=== PATIENT | male | born 1930 | race African-American/Black ===

== ENCOUNTER 2016-06-28 00:34 | Inpatient (IN) | payer MEDICARE, BC ==
[~2016-06-28] VITALS: Ht 175.3 cm; Wt 64.0 kg
[2016-06-28 01:53] VITALS: BP 136/63
[2016-06-28] MEDS ORDERED: DIOVAN160 MG ORAL (02:31)
[2016-06-28] MEDS ORDERED: HYDROCHLOROTHIA25 MG ORAL (02:31)
[2016-06-28] MEDS ORDERED: ATENOLOL50 MG ORAL (02:40)
[2016-06-28] MEDS ORDERED: LIPITOR20 MG ORAL (02:40)
[2016-06-28] MEDS ORDERED: PYRIDOXINE HCL50 MG ORAL (02:40)
[2016-06-28] MEDS ORDERED: ASPIR 8181 MG ORAL (02:40)
[2016-06-28] MEDS ORDERED: NORVASC10 MG ORAL (02:40)
[2016-06-28] MEDS ORDERED: CALCIUM500 M2 PO (02:40)
[2016-06-28] MEDS ORDERED: PSYLLIUM SEED480 GM PO (02:40)
[2016-06-28] MEDS ORDERED: VITAMIN B-12250 MCG PO (02:40)
[2016-06-28] MEDS ORDERED: VITAMIN D-40400 UNIT ORAL (02:40)
[2016-06-28] MEDS ORDERED: CENTRUM SILVER1 EAC5 PO (02:40)
[2016-06-28] MEDS ORDERED: METFORMIN HCL500 M1 ORAL (02:40)
[2016-06-28] MEDS ORDERED: SELENOMAX200 MCG PO (02:41)
[2016-06-28 04:00] VITALS: BP 136/62
[2016-06-28] MEDS ORDERED: metFORMIN 500mg tab ORAL SCH (06:30)
[2016-06-28 08:00] VITALS: BP 129/55
[2016-06-28] MEDS: Metoprolol 25mg tab ORAL SCH ×2 (09:01→21:06)
[2016-06-28] MEDS: Metamucil Pkt ORAL SCH (09:02)
[2016-06-28] MEDS: Irbesartan 150mg tablet ORAL SCH (09:02)
[2016-06-28] MEDS: NovoLOG Insulin Flexpen SUBQ SCH ×5 (09:05→21:07)
[2016-06-28 12:00] VITALS: BP 105/60
--- NOTE | 2016-06-28 12:13 | Consultation ---
History of Present Illness General Date patient seen: Jun 28, 2016 Time patient seen: 09:30 Chief Complaint: syncope Referring physician: dr Avila Reason for Consultation: inpatietn management Present Illness HPI 85 y/old male with hx of HTN, DM, recently diagnosed lung Ca stage 3, was transferred from [place] for further management patient sustained witnessed syncopal episode while in [facility] and was initially BIBA to [place] he admitted not to have breakfast or liquids at that day he felt dizzy and then blackout, according to witness, within less than a minute regained consciousness Workup in [place] was negative patient was admitted for further manageetmn patient denies chest pain, SOB, palpitation, denies dizziness, no further blackout denies headaches, any focal deficits no change in vision , no double vision, no new weakness patient is scheduled to start chemo on Wednesday in [facility] Allergies: Coded Allergies: No Known Allergies (Unverified , 06/28/16) Medication History Scheduled Amlodipine Besylate (Norvasc), 10 MG ORAL DAILY, (Reported) Aspirin* (Aspir 81*), 81 MG ORAL DAILY, (Reported) Atenolol* (Tenormin*), 50 MG ORAL DAILY, (Reported) Atorvastatin Calcium* (Lipitor*), 20 MG ORAL BEDTIME, (Reported) Calcium Carbonate (Calcium), 500 MG PO THREE TIMES A WEEK, (Reported) Cholecalciferol (Vitamin D3) (Vitamin D-400*), 400 UNITS ORAL DAILY, (Reported) Cyanocobalamin (Vitamin B-12) (Vitamin B-12), 250 MCG PO DAILY, (Reported) Folic Acid/Multivits-Min/Lut (Centrum Silver Chewable Tablet), 1 EACH PO DAILY, (Reported) Hydrochlorothiazide* (Hydrochlorothiazide*), 25 MG ORAL DAILY, (Reported) Metformin Hcl* (Metformin Hcl*), 500 MG ORAL THREE TIMES A DAY, (Reported) Psyllium Husk (Psyllium Seed), Unknown Dose PO DAILY, (Reported) Pyridoxine Hcl* (Vitamin B-6*), 50 MG ORAL DAILY, (Reported) Selenium (Selenomax), 200 MCG PO THREE TIMES A WEEK, (Reported) Valsartan (Diovan), 320 MG ORAL DAILY, (Reported) Patient History History Provided By: Patient, Family Member Healthcare decision maker Resuscitation status Full Code Advanced Directive on File Review of Systems Constitutional: Reports: weakness Eye: Reports: no symptoms ENT: Reports: no symptoms Respiratory: Reports: see HPI Cardiovascular: Reports: see HPI Gastrointestinal: Reports: no symptoms Genitourinary: Reports: no symptoms Musculoskeletal: Reports: muscle pain Skin: Reports: no symptoms Psychiatric: Reports: no symptoms Neurological: Reports: see HPI Endocrine: Reports: no symptoms Hematologic/Lymphatic: Reports: no symptoms Physical Exam General Appearance: no apparent distress, alert - thin AA male in NAD Lines, tubes and drains: peripheral HEENT: normocephalic, atraumatic, anicteric, mucous membranes moist, PERRL Neck: non-tender, supple Respiratory/Chest: lungs clear - with moderate air entry , no respiratory distress, no accessory muscle use Cardiovascular/Chest: normal peripheral pulses, normal rate, regular rhythm, no JVD Abdomen: normal bowel sounds, non tender, soft Extremities: normal range of motion, non-tender, no calf tenderness, normal capillary refill Skin Exam: warm/dry Neurologic: no motor/sensory deficits, alert, oriented x 3, responsive Musculoskeletal: normal muscle bulk Last 24 Hour Vital Signs Date Time Temp Pulse Resp B/P Pulse Ox O2 Delivery O2 Flow Rate FiO2 06/28/16 09:30 69 70 70 06/28/16 09:02 129/55 06/28/16 09:01 69 129/55 06/28/16 09:01 69 129/55 06/28/16 08:00 68 06/28/16 08:00 98.1 69 21 129/55 98 Room Air 06/28/16 04:00 66 06/28/16 04:00 97.7 64 20 136/62 100 Room Air 06/28/16 01:53 97.9 68 20 136/63 99 Room Air 06/28/16 01:10 68 Laboratory Tests Test 06/28/16 11:40 White Blood Count Pending Red Blood Count Pending Hemoglobin Pending Hematocrit Pending Mean Corpuscular Volume Pending Mean Corpuscular Hemoglobin Pending Mean Corpuscular Hemoglobin Concent Pending Red Cell Distribution Width Pending Platelet Count Pending Mean Platelet Volume Pending Neutrophils (%) (Auto) Pending Lymphocytes (%) (Auto) Pending Monocytes (%) (Auto) Pending Eosinophils (%) (Auto) Pending Basophils (%) (Auto) Pending Sodium Level Pending Potassium Level Pending Chloride Level Pending Carbon Dioxide Level Pending Blood Urea Nitrogen Pending Creatinine Pending Estimat Glomerular Filtration Rate Pending Glucose Level Pending Calcium Level Pending Phosphorus Level Pending Magnesium Level Pending Total Bilirubin Pending Aspartate Amino Transf (AST/SGOT) Pending Alanine Aminotransferase (ALT/SGPT) Pending Alkaline Phosphatase Pending Troponin I Pending Total Protein Pending Albumin Pending Globulin Pending Height (Feet): 5 Height (Inches): 9.00 Weight (Pounds): 141 Medications Current Medications Medications (Trade) Dose Ordered Sig/Brissa Route PRN Reason Start Time Stop Time Status Last Admin Dose Admin Amlodipine Besylate (Norvasc) 5 mg DAILY ORAL 06/28/16 09:00 07/28/16 08:59 06/28/16 09:01 Atorvastatin Calcium (Lipitor) 20 mg BEDTIME ORAL 06/28/16 21:00 07/28/16 20:59 Clonidine HCl (Catapres) 0.1 mg EVERY 6 HOURS PRN ORAL For High Blood Pressure 06/28/16 04:30 07/28/16 04:29 Heparin Sodium (Porcine) (Heparin 5000 units/ml) 5,000 units EVERY 8 HOURS SUBQ 06/28/16 06:00 07/28/16 05:59 UNV Insulin Aspart BEFORE MEALS AND HS SUBQ 06/28/16 06:30 07/28/16 06:29 06/28/16 11:40 Irbesartan (Avapro) 150 mg DAILY ORAL 06/28/16 09:00 07/28/16 08:59 06/28/16 09:02 Metformin HCl (Glucophage) 1,500 mg BIAC ORAL 06/28/16 06:30 07/28/16 06:29 UNV Metoprolol Tartrate (Lopressor) 25 mg Q12HR ORAL 06/28/16 09:00 07/28/16 08:59 06/28/16 09:01 Psyllium Hydrophilic Mucilloid (Metamucil) 1 pkt DAILY ORAL 06/28/16 09:00 07/28/16 08:59 06/28/16 09:02 Sodium Chloride (Sodium Chloride 1000ml bag) 1,000 ml @ 75 mls/hr [id number] IV 06/28/16 04:30 5/30/17 04:29 06/28/16 05:56 Assessment/Plan Assessment/Plan ASSESSMENT syncope dehydration HTN DM Hx of recently diagnosed lung Ca PLAN OF CARE tele hydrate /IVF syncope likely 2 to dehydration ( patient did not have breakfast, neither oral fluids) Carotid Duplex orthostatic VS recommend neuro eval per PMD fall precautions PT eval and Rx BP management with current regimen/BB, ARB and CCB, monitor closely, avoid hypotension BS management with metformin DVT prophylaxis venous Duplex continue statin lipid panel in am o2 HHN prn patient is scheduled for Wednesday to start chemo, discussed with daughter will notify MD and reschedule pain management bowel regimen case discussed and evaluated by supervising physician Gutierrez Grijalva),Mariann MORFIN Jun 28, 2016 12:13
[2016-06-28] MEDS ORDERED: DuoNeb 0.5-3(2.5)mg/3ml neb HHN PRN (12:15)
[2016-06-28 12:25] LABS: TROPONIN I < 0.30 ng/mL (<=0.30)
[2016-06-28 12:29] LABS: ALANINE AMINOTRANSFERASE 6 U/L (3-41); ALBUMIN/GLOBULIN RATIO 0.9 (1.0-2.7); ANION GAP 16 (5-15); ASPARTATE AMINO TRANSFERASE 17 U/L (5-40); CALCIUM 9.2 mg/dL (8.6-10.2); CARBON DIOXIDE 25 mEQ/L (20-30); CHLORIDE 100 mEQ/L (98-107); HEMOLYSIS 0; MAGNESIUM 1.8 mg/dL (1.7-2.5); POTASSIUM 4.4 mEQ/L (3.4-4.9); SODIUM 141 mEQ/L (135-145); TOTAL PROTEIN 7.3 g/dL (6.6-8.7)
[2016-06-28 12:37] LABS: BASOPHILS % (AUTO) 1.8 % (0.0-2.0); EOSINOPHILS % (AUTO) 1.5 % (0.0-3.0); LYMPHOCYTES % (AUTO) 14.5 % (20.0-45.0); MEAN CORPUSCULAR HEMOGLOBIN 24.8 PG (27.0-31.0); MEAN CORPUSCULAR HGB CONC 30.6 G/DL (32.0-36.0); MEAN CORPUSCULAR VOLUME 81 FL (80-99); MEAN PLATELET VOLUME 6.9 FL (6.5-10.1); MONOCYTES % (AUTO) 8.9 % (1.0-10.0); NEUTROPHILS % (AUTO) 73.4 % (45.0-75.0); PLATELET COUNT 542 K/UL (150-450); RED BLOOD COUNT 3.89 M/UL (4.70-6.10); RED CELL DISTRIBUTION WIDTH 15.2 % (11.6-14.8); WHITE BLOOD COUNT 6.2 K/UL (4.8-10.8)
[2016-06-28] MEDS: Heparin 5000 units/ml inj SUBQ SCH ×2 (14:00→21:59)
--- NOTE | 2016-06-28 14:07 | Cardiology Report ---
APPROVED REPORT EKG Measurement Heart [id number] Normal sinus rhythm Left axis deviation Right bundle branch block and LAFB (Bifascicular block) Abnormal ECG
[2016-06-28 16:00] VITALS: BP 117/58
[2016-06-28] MEDS: metFORMIN 500mg tab ORAL SCH (16:39)
[2016-06-28 20:00] VITALS: BP 135/60
[2016-06-28] MEDS ORDERED: Atorvastatin 20mg tab ORAL SCH (21:00)
--- NOTE | 2016-06-28 23:28 | History and Physical Report ---
DATE OF ADMISSION: 06/28/2016 CHIEF COMPLAINT: The patient is an 85-year-old male, presents with complaint of syncopal episode. HISTORY OF PRESENT ILLNESS: The patient states he was diagnosed with right-sided lung cancer approximately three weeks ago. The patient is followed at [facility] by Dr. Kwon. The patient was scheduled to start chemotherapy tomorrow dated, 06/29/2016. The patient states he was at a laundromat yesterday. The patient states he began to feel lightheaded. The room was spinning. The patient sat down. The patient then passed out. The patient did not fall to the ground. This was witnessed at a laundromat by several patrons of the laundromat. EMS was called. The patient was initially transported to [facility] Emergency Room. The patient is transferred to [facility] secondary to insurance issues. The patient presents today with chief complaint of syncopal episode. PAST MEDICAL HISTORY: Significant for: 1. Diabetes type 2. 2. Hypertension. 3. Lung cancer, diagnosed three weeks ago. 4. Hypercholesterolemia. 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 CURRENT MEDICATIONS: 1. Hydrochlorothiazide 25 mg one tablet p.o. daily. 2. Diovan 160 mg 2 tablets p.o. daily. 3. Norvasc 10 mg one tablet p.o. daily. 4. Atenolol 50 mg one tablet p.o. daily. 5. Glucophage 500 mg one tablet p.o. three times daily. 6. Aspirin 81 mg one tablet p.o. daily. 7. Multivitamin daily. 8. Selenium 200 mcg tablet p.o. three times weekly. 9. Lipitor 20 mg one tablet p.o. daily. ALLERGIES: No known drug allergies. SOCIAL HISTORY: The patient is single and lives alone. The patient denies tobacco use, having quit in 2015. The patient denies alcohol use. REVIEW OF SYSTEMS: Constitutional: The patient denies weight loss or weight gain. The patient denies fevers or chills. HEENT: The patient denies ear or throat pain. The patient denies headache. Cardiovascular: The patient denies palpitations or chest pain. Chest: The patient denies wheezing or shortness breath. Abdominal: The patient denies nausea, vomiting, or constipation. Genitourinary: The patient denies dysuria or frequency of urination. Neuromuscular: The patient denies seizures. The patient complains of loss of consciousness as above. PHYSICAL EXAMINATION: VITAL SIGNS: Temperature 97.9 degrees, respirations 20, pulse 68, and blood pressure 136/63. GENERAL: Generally, the patient is well-nourished, male, in no apparent distress. HEENT: Eyes, pupils are equal and responsive to light and accommodation. Extraocular movements are intact. NECK: Supple without lymphadenopathy. CHEST AND LUNGS: There are decreased breath sounds on the right. Otherwise, lungs are clear to auscultation bilaterally without wheezes or rales. CARDIOVASCULAR: Regular rate. S1 and S2. No murmurs, rubs, or gallops. ABDOMEN: Soft, nontender, and nondistended. Positive bowel sounds. No evidence of hepatosplenomegaly. No rebound or guarding. EXTREMITIES: Negative for clubbing, cyanosis, or edema. RECTAL/GENITAL: Refused. NEUROLOGIC: Neurologically, Cranial nerves II through XII are grossly intact without focal deficits. Motor strength is 5/5 bilaterally. Deep tendon reflexes are 2+ plantar. LABORATORY STUDIES: INR 1.1. WBC 13.1, hemoglobin 9.9, hematocrit 30.6, and platelets 508,000. Sodium 139, potassium 5.2, chloride 100, CO2 28, BUN 18, creatinine 1.5, glucose 210. Troponin less than 0.02. Chest x-ray revealed opacity in the superior right lung. ASSESSMENT: This is an 85-year-old male. 1. Syncopal episode. 2. Right upper lobe opacity. 3. Diabetes type 2. 4. Hypertension. 5. Hypercholesterolemia. TREATMENT: 1. Syncopal episode. A Cardiology consultation was obtained with Dr. Mitch Hernandez. A CT scan of the brain is pending to rule out metastases from lung cancer. A chest CT is pending. He will follow recommendation of Cardiology. 2. Right upper lobe opacity, this is probably lung cancer, which has been diagnosed three weeks previously at [facility]. The patient was scheduled for chemotherapy to begin tomorrow, 06/29/2016. An Oncology consultation with Dr. Arenas. The patient may require transfer to [facility] for chemotherapy. 3. Diabetes type 2. Continue metformin as above. A NovoLog sliding scale has been instituted. 4. Hypertension, continue amlodipine and Diovan as above. 5. Hypercholesterolemia, continue Lipitor as above. Jeremy Oviedo M.D. DR: Blanca JOB#: [id number] CC:
[2016-06-29] VITALS: BP 124/60
--- NOTE | 2016-06-29 00:15 | Consultation ---
Consult Note Consult Note ONCOLOGY CONSULT [facility]: Lung cancer DOS: 06/28/2016 [place]O MD: LUKE CHIEF COMPLAINT: Syncope HISTORY OF PRESENT ILLNESS: 85y old female diagnosed with right-sided lung cancer approximately three weeks ago. The patient is followed at [facility] by Dr. Kwon. The patient was scheduled to start chemotherapy tomorrow dated, 06/29/2016, however given current admission, this will be delayed. The patient states he was at a laundromat yesterday. The patient states he began to feel lightheaded. The room was spinning. The patient sat down. The patient then passed out. The patient did not fall to the ground. This was witnessed at a laundromat by several patrons of the laundromat. EMS was called. The patient was initially transported to [facility] Emergency Room. The patient is transferred to [facility] secondary to insurance issues with a chief complaint of syncopal episode. PAST MEDICAL HISTORY: 1. Diabetes type 2. 2. Hypertension. 3. Lung cancer, diagnosed three weeks ago. 4. Hypercholesterolemia. 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 CURRENT MEDICATIONS: 1. Hydrochlorothiazide 25 mg one tablet p.o. daily. 2. Diovan 160 mg 2 tablets p.o. daily. 3. Norvasc 10 mg one tablet p.o. daily. 4. Atenolol 50 mg one tablet p.o. daily. 5. Glucophage 500 mg one tablet p.o. three times daily. 6. Aspirin 81 mg one tablet p.o. daily. 7. Multivitamin daily. 8. Selenium 200 mcg tablet p.o. three times weekly. 9. Lipitor 20 mg one tablet p.o. daily. ALLERGIES: No known drug allergies. SOCIAL HISTORY: The patient is single and lives alone. The patient denies tobacco use, having quit in 2014. The patient denies alcohol use. REVIEW OF SYSTEMS: Constitutional: The patient denies weight loss or weight gain. The patient denies fevers or chills. HEENT: The patient denies ear or throat pain. The patient denies headache. Cardiovascular: The patient denies palpitations or chest pain. Chest: The patient denies wheezing or shortness breath. Abdominal: The patient denies nausea, vomiting, or constipation. Genitourinary: The patient denies dysuria or frequency of urination. Neuromuscular: The patient denies seizures. PHYSICAL EXAMINATION: VITAL SIGNS: Have been reviewed and is clinically stable GENERAL: Generally, the patient is well-nourished, male, in no apparent distress. HEENT: Eyes, pupils are equal and responsive to light NECK: Supple without lymphadenopathy. CHEST AND LUNGS: There are decreased breath sounds on the right. Otherwise, lungs are clear to auscultation bilaterally CARDIOVASCULAR: Regular rate. S1 and S2. No murmurs, rubs ABDOMEN: Soft, nontender, and nondistended. Positive bowel sounds. No evidence of hepatosplenomegaly. No rebound or guarding. EXTREMITIES: Negative for clubbing, cyanosis, or edema. RECTAL/GENITAL: Refused. NEUROLOGIC: Neurologically, Cranial nerves II through XII are grossly intact without focal deficits. LABORATORY STUDIES: INR 1.1. WBC 13.1, hemoglobin 9.9, hematocrit 30.6, and platelets 508,000. ASSESSMENT AND RECS: # Lung cancer stage 3 - will be started on chemotherapy this month, initially for 06/29/16 but has been delayed - a CT of the chest as well as brain ordered to r/o mets. Chemo with Dr. Kwon at [facility] # Anemia 2/2 malignancy # Anemia 2/2 chronic disease # Thrombocytosis is likely related to anemia # Syncopal episode. # Right upper lobe opacity. # Diabetes type 2. # Hypertension. # Hypercholesterolemia. # Appreciate consultation Marcellus Arenas June 29, 2016 00:15
[2016-06-29 04:00] VITALS: BP 145/85
[2016-06-29] MEDS: Heparin 5000 units/ml inj SUBQ SCH ×2 (06:00→14:00)
[2016-06-29] MEDS: NovoLOG Insulin Flexpen SUBQ SCH ×3 (06:30→16:30)
[2016-06-29] MEDS: metFORMIN 500mg tab ORAL SCH ×2 (06:32→16:44)
[2016-06-29 06:37] LABS: BASOPHILS % (AUTO) 3.6 % (0.0-2.0); EOSINOPHILS % (AUTO) 1.3 % (0.0-3.0); MEAN CORPUSCULAR HEMOGLOBIN 24.7 PG (27.0-31.0); MEAN CORPUSCULAR HGB CONC 30.3 G/DL (32.0-36.0); MEAN CORPUSCULAR VOLUME 81 FL (80-99); MEAN PLATELET VOLUME 6.5 FL (6.5-10.1); MONOCYTES % (AUTO) 6.8 % (1.0-10.0); NEUTROPHILS % (AUTO) 75.3 % (45.0-75.0); PLATELET COUNT 594 K/UL (150-450); RED BLOOD COUNT 4.15 M/UL (4.70-6.10); RED CELL DISTRIBUTION WIDTH 15.4 % (11.6-14.8); WHITE BLOOD COUNT 8.9 K/UL (4.8-10.8)
[2016-06-29 07:15] LABS: TROPONIN I < 0.30 ng/mL (<=0.30)
[2016-06-29 07:19] LABS: CHOLESTEROL/HDL RATIO 3.4 (3.3-4.4)
[2016-06-29 07:22] LABS: ANION GAP 17 (5-15); CALCIUM 9.7 mg/dL (8.6-10.2); CARBON DIOXIDE 25 mEQ/L (20-30); CHLORIDE 98 mEQ/L (98-107); CREATININE 1.1 mg/dL (0.7-1.2); HEMOLYSIS 0; POTASSIUM 4.7 mEQ/L (3.4-4.9); SODIUM 140 mEQ/L (135-145)
[2016-06-29] MEDS: Irbesartan 150mg tablet ORAL SCH (08:21)
[2016-06-29] MEDS: Metoprolol 25mg tab ORAL SCH (08:22)
[2016-06-29] MEDS: Metamucil Pkt ORAL SCH (08:23)
[2016-06-29 08:34] VITALS: BP 125/64
--- NOTE | 2016-06-29 10:32 | Cardiology Report ---
APPROVED REPORT EXAM: Two-dimensional and M-mode echocardiogram with Doppler and color Doppler. INDICATION Syncope M-Mode DIMENSIONS IVSd0.9 (0.7-1.1cm)Left Atrium (MM)3.2 (1.6-4.0cm) LVDd3.6 (3.5-5.6cm)Aortic Root2.7 (2.0-3.7cm) PWd1.1 (0.7-1.1cm)Aortic Cusp Exc.1.7 (1.5-2.0cm) LVDs2.2 (2.5-4.0cm) PWs1.1 cm Technically difficult study due to poor acoustic windows due to patients breathing. Normal left ventricular chamber size, systolic function and wall motion. Left ventricular ejection fraction estimated to be 60-65 %. Mild left ventricular hypertrophy. No evidence of pericardial fat or effusion. All other cardiac chamber sizes are within normal limits. Focal aortic valve sclerosis with adequate cusp excursion Thickened mitral valve leaflets with normal excursion. Mitral annulus and aortic root calcification. Pulmonic valve not well visualized. Normal tricuspid valve structure. IVC is normal iin size with physiologic collapse. A color flow and spectral Doppler study was performed and revealed: Trace aortic regurgitation. Trace mitral regurgitation. Left ventricular diastolic dysfunction grade 1. No tricuspid regurgitation.
[2016-06-29 11:34] VITALS: BP 129/60
--- NOTE | 2016-06-29 11:56 | Diagnostic Imaging Report ---
APPROVED REPORT CPT Code: 18284 Present Symptoms Lower Extremity Pain: Bilateral BILATERAL: Imaging reveals a patent deep venous system bilaterally. There is no evidence of thrombus within the femoral, popliteal or tibial segments. The greater saphenous veins are also within normal limits. Doppler indicates normal spontaneous flow within these segments.
[2016-06-29 15:34] VITALS: BP 115/55
--- NOTE | 2016-06-29 17:09 | Pulmonology Progress Note ---
Assessment/Plan Problems: (1) Lung cancer (2) Diabetes (3) Syncope Assessment/Plan blood sugar controlled pt adament about leaving hospital to get chemo and rt at [facility]. Subjective ROS Limited/Unobtainable: No Interval Events: asymptomatic Allergies: Coded Allergies: No Known Allergies (Unverified , 06/28/16) Objective Last 24 Hour Vital Signs Date Time Temp Pulse Resp B/P Pulse Ox O2 Delivery O2 Flow Rate FiO2 06/29/16 15:34 98.4 67 20 115/55 100 Room Air 06/29/16 12:00 64 06/29/16 11:34 97.5 67 20 129/60 99 Room Air 06/29/16 09:45 77 06/29/16 09:40 77 06/29/16 09:35 72 06/29/16 08:34 98.1 68 20 125/64 99 Room Air 06/29/16 08:22 68 125/64 06/29/16 08:21 68 125/64 06/29/16 08:21 125/64 06/29/16 08:00 73 06/29/16 07:38 69 18 Room Air 06/29/16 04:00 82 06/29/16 04:00 98.1 72 20 145/85 99 Room Air 06/29/16 01:00 79 80 80 06/29/16 00:00 97.9 67 22 124/60 99 Room Air 06/29/16 00:00 67 06/28/16 21:06 68 123/60 06/28/16 20:00 97.5 97 22 135/60 100 Room Air 06/28/16 20:00 67 06/28/16 18:41 65 18 Intake and Output 06/28/16 06/29/16 19:00 07:00 Intake Total 862.5 ml 855 ml Balance 862.5 ml 855 ml IV Total 862.5 ml 855 ml # Voids 8 4 General Appearance: WD/WN HEENT: normocephalic, atraumatic Respiratory/Chest: chest wall non-tender, lungs clear, chest wall tender Cardiovascular: normal rate Abdomen: normal bowel sounds, soft, non tender Extremities: no cyanosis Skin: no rash Lymphatic: no neck adenopathy Laboratory Tests 06/29/16 06:10: White Blood Count 8.9, Red Blood Count 4.15L, Hemoglobin 10.2L, Hematocrit 33.8L , Mean Corpuscular Volume 81, Mean Corpuscular Hemoglobin 24.7L, Mean Corpuscular Hemoglobin Concent 30.3L, Red Cell Distribution Width 15.4H, Platelet Count 594H, Mean Platelet Volume 6.5, Neutrophils (%) (Auto) 75.3H, Lymphocytes (%) (Auto) 13.0L, Monocytes (%) (Auto) 6.8, Eosinophils (%) (Auto) 1.3, Basophils (%) (Auto) 3.6H, Sodium Level 140, Potassium Level 4.7, Chloride Level 98, Carbon Dioxide Level 25, Anion Gap 17H, Blood Urea Nitrogen 13, Creatinine 1.1, Estimat Glomerular Filtration Rate , Glucose Level 161H, Calcium Level 9.7, Troponin I < 0.30, Triglycerides Level 106, Cholesterol Level 124, LDL Cholesterol 66, HDL Cholesterol 37, Cholesterol/HDL Ratio 3.4 Current Medications Medications (Trade) Dose Ordered Sig/Brissa Route PRN Reason Start Time Stop Time Status Last Admin Dose Admin Albuterol/ Ipratropium (DuoNeb 0.5-3(2.5)mg/3ml) 3 ml Q4HRT PRN HHN Shortness of Breath 06/28/16 12:15 07/03/16 12:14 Amlodipine Besylate (Norvasc) 5 mg DAILY ORAL 06/28/16 09:00 07/28/16 08:59 06/29/16 08:21 Atorvastatin Calcium (Lipitor) 20 mg BEDTIME ORAL 06/28/16 21:00 07/28/16 20:59 06/28/16 21:05 Clonidine HCl (Catapres) 0.1 mg EVERY 6 HOURS PRN ORAL For High Blood Pressure 06/28/16 04:30 07/28/16 04:29 Heparin Sodium (Porcine) (Heparin 5000 units/ml) 5,000 units EVERY 8 HOURS SUBQ 06/28/16 14:00 07/28/16 13:59 Insulin Aspart BEFORE MEALS AND HS SUBQ 06/28/16 06:30 07/28/16 06:29 06/28/16 16:40 Irbesartan (Avapro) 150 mg DAILY ORAL 06/28/16 09:00 07/28/16 08:59 06/29/16 08:21 Metformin HCl (Glucophage) 500 mg BIAC ORAL 06/28/16 16:30 07/28/16 16:29 06/29/16 16:44 Metoprolol Tartrate (Lopressor) 25 mg Q12HR ORAL 06/28/16 09:00 07/28/16 08:59 06/29/16 08:22 Psyllium Hydrophilic Mucilloid (Metamucil) 1 pkt DAILY ORAL 06/28/16 09:00 07/28/16 08:59 06/29/16 08:23 Sodium Chloride (Sodium Chloride 1000ml bag) 1,000 ml @ 75 mls/hr [id number] 06/28/16 04:30 07/28/16 04:29 06/29/16 06:33 LAMAR RODRIGUEZ June 29, 2016 17:09
[2016-06-29] MEDS ORDERED: Tubing Blood Filter IV ONE (17:46)
[2016-06-29] MEDS ORDERED: Tubing IV Secondary IV ONE (17:46)
[2016-06-29] MEDS ORDERED: Sterile Water Irrig 1000ml IRRIG ONE (17:46)
[2016-06-29] MEDS ORDERED: 1/2 NS 1000ml IV ONE (17:46)
[2016-06-29] MEDS ORDERED: NS 275ml ONE (17:46)
--- NOTE | 2016-06-29 18:01 | Internal Med Progress Note ---
Subjective Date of Service: June 29, 2016 Physician Name Jeremy Sanchez Attending Physician Lee Avila MD Current Medications Medications (Trade) Dose Ordered Sig/Brissa Route PRN Reason Start Time Stop Time Status Last Admin Dose Admin Albuterol/ Ipratropium (DuoNeb 0.5-3(2.5)mg/3ml) 3 ml Q4HRT PRN HHN Shortness of Breath 06/28/16 12:15 07/03/16 12:14 Amlodipine Besylate (Norvasc) 5 mg DAILY ORAL 06/28/16 09:00 07/28/16 08:59 06/29/16 08:21 Atorvastatin Calcium (Lipitor) 20 mg BEDTIME ORAL 06/28/16 21:00 07/28/16 20:59 06/28/16 21:05 Clonidine HCl (Catapres) 0.1 mg EVERY 6 HOURS PRN ORAL For High Blood Pressure 06/28/16 04:30 07/28/16 04:29 Heparin Sodium (Porcine) (Heparin 5000 units/ml) 5,000 units EVERY 8 HOURS SUBQ 06/28/16 14:00 07/28/16 13:59 Insulin Aspart BEFORE MEALS AND HS SUBQ 06/28/16 06:30 07/28/16 06:29 06/28/16 16:40 Irbesartan (Avapro) 150 mg DAILY ORAL 06/28/16 09:00 07/28/16 08:59 06/29/16 08:21 Metformin HCl (Glucophage) 500 mg BIAC ORAL 06/28/16 16:30 07/28/16 16:29 06/29/16 16:44 Metoprolol Tartrate (Lopressor) 25 mg Q12HR ORAL 06/28/16 09:00 07/28/16 08:59 06/29/16 08:22 Psyllium Hydrophilic Mucilloid (Metamucil) 1 pkt DAILY ORAL 06/28/16 09:00 07/28/16 08:59 06/29/16 08:23 Sodium Chloride (Sodium Chloride 1000ml bag) 1,000 ml @ 75 mls/hr [id number] IV 06/28/16 04:30 07/28/16 04:29 06/29/16 06:33 Allergies: Coded Allergies: No Known Allergies (Unverified , 06/28/16) ROS Limited/Unobtainable: No Constitutional: Reports: no symptoms HEENT: Reports: no symptoms Cardiovascular: Reports: no symptoms Respiratory: Reports: shortness of breath Gastrointestinal/Abdominal: Reports: no symptoms Genitourinary: Reports: no symptoms Neurologic/Psychiatric: Reports: no symptoms Subjective 85 YO M admitted with syncope. H/O lung cancer. Cover for [facility]-Dr Avila. Patient requesting discharge to follow up at [facility] - Dr Laureano. Objective Last Vital Signs Date Time Temp Pulse Resp B/P Pulse Ox O2 Delivery O2 Flow Rate FiO2 06/29/16 17:10 92 06/29/16 15:34 98.4 20 115/55 100 Room Air Laboratory Tests Test 06/29/16 06:10 White Blood Count 8.9 K/UL (4.8-10.8) Red Blood Count 4.15 M/UL (4.70-6.10) L Hemoglobin 10.2 G/DL (14.2-18.0) L Hematocrit 33.8 % (42.0-52.0) L Mean Corpuscular Volume 81 FL (80-99) Mean Corpuscular Hemoglobin 24.7 PG (27.0-31.0) L Mean Corpuscular Hemoglobin Concent 30.3 G/DL (32.0-36.0) L Red Cell Distribution Width 15.4 % (11.6-14.8) H Platelet Count 594 K/UL (150-450) H Mean Platelet Volume 6.5 FL (6.5-10.1) Neutrophils (%) (Auto) 75.3 % (45.0-75.0) H Lymphocytes (%) (Auto) 13.0 % (20.0-45.0) L Monocytes (%) (Auto) 6.8 % (1.0-10.0) Eosinophils (%) (Auto) 1.3 % (0.0-3.0) Basophils (%) (Auto) 3.6 % (0.0-2.0) H Sodium Level 140 mEQ/L (135-145) Potassium Level 4.7 mEQ/L (3.4-4.9) Chloride Level 98 mEQ/L (98-107) Carbon Dioxide Level 25 mEQ/L (20-30) Anion Gap 17 (5-15) H Blood Urea Nitrogen 13 mg/dL (7-23) Creatinine 1.1 mg/dL (0.7-1.2) Estimat Glomerular Filtration Rate mL/min (>60) Glucose Level 161 mg/dL (74-106) H Calcium Level 9.7 mg/dL (8.6-10.2) Troponin I < 0.30 ng/mL (<=0.30) Triglycerides Level 106 mg/dL (< 150) Cholesterol Level 124 mg/dL (< 200) LDL Cholesterol 66 mg/dL (60-99) HDL Cholesterol 37 mg/dL (> 60) Cholesterol/HDL Ratio 3.4 (3.3-4.4) Intake and Output 06/28/16 06/29/16 19:00 07:00 Intake Total 862.5 ml 855 ml Balance 862.5 ml 855 ml IV Total 862.5 ml 855 ml # Voids 8 4 Objective General: alert, cooperative, no distress, appears stated age Head: normocephalic, without obvious abnormality, atraumatic Eyes: conjunctivae/corneas clear. PERRL, EOM's intact Throat: lips, mucosa, and tongue normal. MMM Neck: supple, symmetrical, trachea midline, and no JVD Lungs: Decreased breath sounds right upper lobe, otherwise clear to auscultation bilaterally Heart: regular rate and rhythm, S1, S2 normal, no murmur, click, rub or gallop Abdomen: soft, non-tender, non-distended, bowel sounds normal; no masses or organomegaly Extremities: extremities normal, atraumatic, no cyanosis or edema Pulses: 2+ and symmetric Skin: skin color, texture, turgor normal; no rashes or lesions Neurologic: grossly normal, no focal deficits Assessment/Plan Problem List: (1) Hypercholesteremia Assessment & Plan: cont lipitor (2) Hypertension Assessment & Plan: Cont avapro, norvasc and lopressor (3) Pneumonia (4) Syncope (5) Lung cancer (6) Diabetes Assessment & Plan: Cont Metformin and novolog. Status: not improved Assessment/Plan Patient wants to discharge to follow up at [facility] JEREMY SANCHEZ June 29, 2016 18:01
--- NOTE | 2016-06-30 00:01 | General Progress Note ---
Assessment/Plan Assessment/Plan ASSESSMENT AND RECS: # Lung cancer stage 3 - will be started on chemotherapy this month, initially for 06/29/16 but has been delayed - a CT of the chest as well as brain ordered to r/o mets. Chemo with Dr. Kwon at [facility] # Anemia 2/2 malignancy # Anemia 2/2 chronic disease # Thrombocytosis is likely related to anemia # Syncopal episode. # Right upper lobe opacity. # Diabetes type 2. # Hypertension. # Hypercholesterolemia. # Appreciate consultation Subjective Date patient seen: June 29, 2016 Constitutional: Reports: no symptoms HEENT: Reports: no symptoms Cardiovascular: Reports: no symptoms Respiratory: Reports: no symptoms Gastrointestinal/Abdominal: Reports: poor appetite Genitourinary: Reports: no symptoms Neurologic/Psychiatric: Reports: no symptoms Endocrine: Reports: no symptoms Hematologic/Lymphatic: Reports: anemia Allergies: Coded Allergies: No Known Allergies (Unverified , 06/28/16) Subjective wants to leave today Objective Last 24 Hour Vital Signs Date Time Temp Pulse Resp B/P Pulse Ox O2 Delivery O2 Flow Rate FiO2 06/29/16 17:10 92 06/29/16 17:05 69 06/29/16 17:00 68 06/29/16 16:00 64 06/29/16 15:34 98.4 67 20 115/55 100 Room Air 06/29/16 12:00 64 06/29/16 11:34 97.5 67 20 129/60 99 Room Air 06/29/16 09:45 77 06/29/16 09:40 77 06/29/16 09:35 72 06/29/16 08:34 98.1 68 20 125/64 99 Room Air 06/29/16 08:22 68 125/64 06/29/16 08:21 68 125/64 06/29/16 08:21 125/64 06/29/16 08:00 73 06/29/16 07:38 69 18 Room Air 06/29/16 04:00 82 06/29/16 04:00 98.1 72 20 145/85 99 Room Air 06/29/16 01:00 79 80 80 Intake and Output 06/29/16 06/30/16 19:00 07:00 Intake Total 990 ml Balance 990 ml Intake Oral 240 ml IV Total 750 ml # Voids 2 Laboratory Tests 06/29/16 06:10: White Blood Count 8.9, Red Blood Count 4.15L, Hemoglobin 10.2L, Hematocrit 33.8L , Mean Corpuscular Volume 81, Mean Corpuscular Hemoglobin 24.7L, Mean Corpuscular Hemoglobin Concent 30.3L, Red Cell Distribution Width 15.4H, Platelet Count 594H, Mean Platelet Volume 6.5, Neutrophils (%) (Auto) 75.3H, Lymphocytes (%) (Auto) 13.0L, Monocytes (%) (Auto) 6.8, Eosinophils (%) (Auto) 1.3, Basophils (%) (Auto) 3.6H, Sodium Level 140, Potassium Level 4.7, Chloride Level 98, Carbon Dioxide Level 25, Anion Gap 17H, Blood Urea Nitrogen 13, Creatinine 1.1, Estimat Glomerular Filtration Rate , Glucose Level 161H, Calcium Level 9.7, Troponin I < 0.30, Triglycerides Level 106, Cholesterol Level 124, LDL Cholesterol 66, HDL Cholesterol 37, Cholesterol/HDL Ratio 3.4 Height (Feet): 5 Height (Inches): 9.00 Weight (Pounds): 141 General Appearance: alert Neck: non-tender Cardiovascular: normal peripheral pulses Respiratory/Chest: no respiratory distress Abdomen: soft Extremities: non-tender Edema: 1+ Leg (L), 1+ Leg (R) Edema: mild edema Neurologic: alert Skin: warm/dry Marcellus Arenas June 30, 2016 00:01
--- NOTE | 2016-07-01 07:58 | Discharge Summary ---
Discharge Summary Hospital Course Date of Admission Jun 28, 2016 at 00:43 Date of Discharge June 29, 2016 at 17:47 Admitting Diagnosis HPI Gabriele Delgado is a 85 year old male who was admitted on Jun 28, 2016 at 00:43 for Syncope Hospital Course dc summary #[id number] Discharge Medications Continued Medications: Amlodipine Besylate (Norvasc) 10 Mg Tablet 10 MG ORAL DAILY, TAB Atenolol* (Tenormin*) 50 Mg Tablet 50 MG ORAL DAILY, TAB Atorvastatin Calcium* (Lipitor*) 20 Mg Tablet 20 MG ORAL BEDTIME, TAB Calcium Carbonate (Calcium) 500 Mg Tablet 500 MG PO THREE TIMES A WEEK, TAB Psyllium Husk (Psyllium Seed) 480 Gm Powder Unknown Dose PO DAILY, GM Pyridoxine Hcl* (Vitamin B-6*) 50 Mg Tablet 50 MG ORAL DAILY, TAB 0 Refills Selenium (Selenomax) 200 Mcg Tablet 200 MCG PO THREE TIMES A WEEK, TAB Valsartan (Diovan) 160 Mg Tablet 320 MG ORAL DAILY, TAB Discharge Condition Upon Discharge: stable Discharge Disposition Patient was discharged to Home () Discharge Diagnoses: Gutierrez (Abilio)Mariann NP July 01, 2016 07:57
--- NOTE | 2016-07-01 22:10 | Discharge Summary 2 SIG ---
DATE OF ADMISSION: 06/28/2016 DATE OF DISCHARGE: 06/29/2016 REASON FOR ADMISSION: This is an 85-year-old male with history of hypertension, diabetes, hypercholesterolemia, recently diagnosed lung cancer stage III, was transferred from [facility] for further management. The patient sustained a witnessed syncopal episode while in and was initially brought in by ambulance to [facility]. The patient admitted not to have breakfast or liquid at that day. He felt dizzy and then had blackout. According to witness less than in a minute he regained consciousness. Workup in the [facility] was negative. The patient was transferred to [facility] for further management. The patient denied chest pain, shortness of breath, or palpitation. The patient denied dizziness. No further blackout. He denied headache and no focal deficit. No change in vision. No double vision. No new weakness. The patient as scheduled to start chemotherapy on Wednesday with Dr. Kwon in [facility]. ADMITTING DIAGNOSES: Include, 1. Syncope. 2. Dehydration. 3. Hypertension. 4. Diabetes. 5. History of recently diagnosed lung cancer. HOSPITAL COURSE: The patient was admitted to telemetry floor. The patient was started on the IV fluids for hydration. Syncope was likely secondary to dehydration. Carotid duplex was ordered. Orthostatic vital signs were checked. Fall precaution maintained. The patient was working with physical therapy. Blood pressure was managed with current regimen of beta-missy, ARB and calcium channel missy. Blood pressure was closely monitored with voiding of hypotension. Blood sugar was managed with metformin. DVT prophylaxis was provided. Statin was continued. Supplemental oxygen and pulmonary toilet was provided. Bowel regimen was instituted. Pain management was provided. Echocardiogram revealed preserved ejection fraction of 60% to 65% and mild left ventricular hypertrophy. No evidence of arrhythmia while on telemetry. Venous duplex bilateral lower extremity was negative. Carotid duplex was essentially negative. No orthostatic blood pressure changes, which were done after IV hydration. The patient was stable. Registered Nurse Maternity and oncologist seen the patient. He diagnosed the patient with anemia of chronic disease and anemia of malignancy. He recommended to have at [facility], CT of the chest and CT of the brain to rule out malignancy. Hemoglobin and hematocrit stayed on the baseline. Prior to discharge, hemoglobin 10.2 and hematocrit 33.8. The patient also noted to have thrombocytosis. Platelet count was 594. According to oncologist, thrombocytosis is likely related to anemia. The patient was stable for discharge and follow up with the chemotherapy at [facility]. DISCHARGE DIAGNOSES: Include, 1. Syncope. 2. Syncopal episode likely secondary to dehydration. 3. Dehydration. 4. Hypertension. 5. Diabetes. 6. Lung cancer stage III. 7. Anemia secondary to malignancy. 8. Thrombocytosis. DISCHARGE MEDICATIONS: See medication reconciliation list. DISCHARGE INSTRUCTIONS: The patient was discharged home. FOLLOWUP: Follow up with the chemotherapy at [facility] as scheduled. Lee Avila M.D. I have been assigned to dictate discharge summary on this account and I was not involved in the patient's management. Mariann toscanongoc NGypsy DR: AMEENA JOB#: [id number] CC:
--- NOTE | 2016-07-02 15:13 | Diagnostic Imaging Report ---
APPROVED REPORT CPT Code: 73065 Vascular Symptoms Dizziness and Vertigo Doppler Spectral Velocity Analysis RightLeft BILATERAL: CCA/BULB - Imaging reveals irregular, minimal plaque in both carotid bulbs. arteries. The Doppler spectral flow analysis is within normal limits throughout the internal and external carotid arteries. VERTEBRALS - Imaging reveals both vertebral arteries to be patent, without evidence of stenosis or steal.
== END 2016-06-29 17:47 | disposition home or self-care (01) | DRG 641 ==
LOC: 2E 00:43
DX: E86.0 Dehydration (principal); C34.90 Malignant neoplasm of unspecified part of unspecified bronchus or lung; E11.9 Type 2 diabetes mellitus without complications; R55 Syncope and collapse; I10 Essential (primary) hypertension; D47.3 Essential (hemorrhagic) thrombocythemia; D63.0 Anemia in neoplastic disease; E78.00 Pure hypercholesterolemia, unspecified
CPT/HCPCS: 36415; 80048; 80053; 80061; 82962; 83735; 84100; 84484; 85025; 93005; 93306; 93880; 93970; 94664; J1815